=== PATIENT | female | born 1950 | race Caucasian/White ===

== ENCOUNTER 2022-04-01 10:00 | Inpatient (IN) | payer MEDICARE ==
[~2022-04-01] VITALS: Ht 157.5 cm; Wt 49.6 kg
--- NOTE | 2022-04-01 10:10 | NUR ---
PT IS IN ROOM #1B. DR NAGEL EVALUATED THE PT.
[2022-04-01] MEDS ORDERED: DIAZ5TAB PO (10:22)
[2022-04-01] MEDS ORDERED: HYDR-3980 PO (10:22)
[2022-04-01] MEDS ORDERED: TRAM50TA2 PO (10:22)
--- NOTE | 2022-04-01 10:25 | NUR ---
GPS: RECEIVED A CALL FROM RN SALLY ON PT GOING TO BE ADMITTED TO MHU. REVIEWED PT DISCHARGE PAPER WITH POTASSIUM LEVEL OF 3.2 . PER ED RN, PT IS MEDICALLY CLEARED BY ER MD AND NURSING FASHION BUYING INTERNSHIP ON THE FLOOR AWARE OF THE PT HYPOKALEMIA.
--- NOTE | 2022-04-01 10:31 | NUR ---
PT WAS MEDICALY CLEARED BY DR NAGEL.
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
--- NOTE | 2022-04-01 10:44 | NUR ---
REPORT WAS GIVEN TO RN MHU. PT WAS TRANSFERED TO MHU ROOM #145B.
[2022-04-01 11:00] VITALS: BP 157/83
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
[2022-04-01] MEDS ORDERED: BLOOD SUGAR DIAGNOSTIC 1 EACH STRIP VI ONE (11:30)
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
[2022-04-01 15:44] VITALS: BP 169/107
[2022-04-01] MEDS ORDERED: MAG HYDROX/AL HYDROX/SIMETH 30 ML LIQUID UDC PO PRN (16:00)
[2022-04-01] MEDS ORDERED: TEMAZEPAM 7.5 MG CAPSULE PO PRN (16:00)
[2022-04-01] MEDS ORDERED: MAGNESIUM HYDROXIDE 30 ML LIQUID UDC PO PRN (16:00)
--- NOTE | 2022-04-01 18:10 | NUR ---
GPS: PT HAD BEEN VERY LOUD, HYPERVERBAL AND ARGUMENTATIVE. VERY DISRUPTED WITH GROUP ACTIVITIES. PT EASILY GETS IRRITATED. PARANOID AND WITH POOR JUDGMENT AND IMPULSE CONTROL. PT WITH EPISODE OF DISORGANIZED AND DISORIENTED, ASKING LOG CHAIN FEEDER "WHY AM I HERE?" PT REORIENTED TO PRESENT SITUATION. OFFERED ATIVAN AND REFUSED. UNABLE TO TAKE VIABLE PLAN FOR SELF CARE.
[2022-04-01] MEDS: NICOTINE 14 MG/24HR PATCH TD SCH (19:54)
[2022-04-01] MEDS: LORAZEPAM 0.5 MG TABLET PO PRN (19:56)
[2022-04-01] MEDS: HYDROCODONE/APAP 10-325 MG TABLET PO PRN (20:47)
[2022-04-01] MEDS: METOPROLOL TARTRATE 25 MG TABLET PO SCH (20:47)
[2022-04-01 20:50] VITALS: BP 190/95
--- NOTE | 2022-04-01 20:53 | NUR ---
GPS: Pt.is anxious,manic,hyperverbal,has flight of ideas and uncooperative with her plan of care so far. Argumentative,paranoid and easily irritable when being re-directed. Refused med.ordered for her high B/P at this time despite explanation of importance. Refuses B/P to be re-checked again. Poor insight to present situation. Shandon 1 tab given for generalized pain as requested. Will continue to monitor behavior for further escalation. AWOL/assaultive precautions observed.
--- NOTE | 2022-04-02 05:20 | NUR ---
GPS: Pt.is awake,frequently at nurses station,manic,hyperverbal with pressured speech. Rambling,has flight of ideas,persevering. Difficult to re-direct. Arguing with staff repeatedly. Poor insight to present situation. Refused Ativan 0.5mg PO despite numerous attempts. Limit setting provided by staff. Will continue to monitor behavior for further escalation.
[2022-04-02] MEDS: ACETAMINOPHEN 325 MG TABLET PO PRN ×2 (05:33→20:48)
[2022-04-02 07:30] VITALS: BP_SYST 151; BP_SYST 51; BP_DIAS 82
[2022-04-02] MEDS: METOPROLOL TARTRATE 25 MG TABLET PO SCH ×2 (08:57→20:49)
[2022-04-02] MEDS: NICOTINE 14 MG/24HR PATCH TD SCH (08:58)
--- NOTE | 2022-04-02 08:58 | NUR ---
GPS: PT REFUSED MEDICATION METOPROLOL TODAY PT BLOOD PRESSURE IS ON THE HIGH SIDE. PT THREW IT. ALSO REFUSED NICOTINE PATCH. PT VERBALLY ABUSIVE AND THREATENING STAFF "WATCH YOUR BACK!". HYPERVERBAL, AGITATED AND ANXIOUS, PACING THE HALLWAY AND DISTURBING OTHER PT. OFFERED ATIVAN AND REFUSED.
--- NOTE | 2022-04-02 10:20 | NUR ---
GPS: PT SEEN BY PSYCHIATRIST, VERY ARGUMENTATIVE, AGITATED, VERBALLY ABUSIVE AND NON-REDIRECTABLE. PT KEEP GOING BACK TO NURSES STATION AGITATED AND VERY LOUD. PT POSES A DANGER AND HAVE POTENTIAL TO HARM OTHERS AND VERY DISRUPTIVE TO GROUP ACTIVITIES. UNABLE TO FOLLOW COMMAND. PSYCHIATRIST ORDERED ZYPREXA 5MG IM, ADMINISTERED TO PT AND TOLERATED WELL. WILL MONITOR FOR PT SAFETY.
[2022-04-02] MEDS ORDERED: OLANZAPINE 10 MG VIAL IM ONE (10:30)
--- NOTE | 2022-04-02 11:15 | NUR ---
GPS: PT STILL DISRUPTIVE. INTERRUPTING STAFF AND VERBALLY ABUSIVE. PT PACING ALONG THE HALLWAY AND ACTIVITY ROOM AND STILL BEING LOUD. TRIED TO CALM PT DOWN AND OFFERED ATIVAN PO BUT REFUSED. WILL MONITOR PT BEHAVIOR.
[2022-04-02 16:00] VITALS: BP 132/61
[2022-04-02] MEDS: DIVALPROEX SPRINKLE 125 MG CAP.SPRINK PO SCH (17:00)
--- NOTE | 2022-04-02 17:56 | NUR ---
GPS: PT HAD A NAP FOR ABOUT 2 HOURS AT 1400 AFTER RECEIVING AN IM OF ZYPREXA THIS MORNING. PT STILL HYPERVERBAL, LOUD PRESSURED SPEECH, VERBALLY ABUSIVE TO STAFF AND OTHER PT, VERY ARGUMENTATIVE AND ANXIOUS BEHAVIOR. POOR JUDGMENT AND IMPULSE CONTROL. PT HARD TO UNDERSTAND AND NON-REDIRECTABLE. FLIGHT OF IDEAS NOTED, PT STATING "DO YOU KNOW WHAT IS A MENOPAUSE. ARE YOU IN [place]?". PT REFUSED DEPAKOTE SPRINKLE PO GIVEN. EXPLAINED THE INDICATION, RISK AND BENEFITS OF TAKING THE MEDS BUT PT STILL REFUSED.
[2022-04-02 20:00] VITALS: BP 155/101
[2022-04-02] MEDS: OLANZAPINE 5 MG TABLET PO SCH (20:49)
[2022-04-02] MEDS: LORAZEPAM 0.5 MG TABLET PO PRN (20:50)
[2022-04-02] MEDS ORDERED: LORAZEPAM 2 MG/1 ML VIAL IM STA (20:51)
[2022-04-02] MEDS ORDERED: BENZTROPINE MESYLATE 2 MG/2 ML AMPUL IM STA (20:51)
[2022-04-02] MEDS ORDERED: HALOPERIDOL LACTATE 5 MG/1 ML VIAL IM STA (20:51)
[2022-04-02] MEDS ORDERED: OLANZAPINE 2.5 MG TABLET PO SCH (21:00)
--- NOTE | 2022-04-03 05:06 | NUR ---
Received to care, angry, and easily agitated, exhibiting paranoid behavior, and flight of ideas, going from one subject to another, rarely making logical sense. Stated the staff and her daughters are out to get her, that they are trying to steal her house. Medications were offered, but she continued to refuse them. After several attempts at trying to administer medications, she agreed to take, but then became violent, throwing the medications and water cup at this public relations writer, and continuing to make verbal threats. She began posturing with her fists, stating "you all will pay for this. just wait and you will see" Dr Campbell was paged, and patient was given an IM injection of Haldol 5 mg/Ativan 1 mg/Cogentin 1 mg, with security present, per MD orders. at 2225. She was cooperative the with injection, but was cursing and yelling during the administration of it. Ativan was given to the right deltoid, and the rest was given to the left hip. She calmed down after about half an hour, and went to sleep, and has slept soundly since then, with no distress noted. Will continue to monitor closely.
[2022-04-03 07:30] VITALS: BP 121/73
[2022-04-03] MEDS: OLANZAPINE 5 MG TABLET PO SCH ×2 (09:00→21:00)
[2022-04-03] MEDS: METOPROLOL TARTRATE 25 MG TABLET PO SCH ×2 (09:00→21:00)
[2022-04-03] MEDS: DIVALPROEX SPRINKLE 125 MG CAP.SPRINK PO SCH ×2 (09:00→17:00)
[2022-04-03] MEDS: NICOTINE 14 MG/24HR PATCH TD SCH ×2 (09:00→21:37)
--- NOTE | 2022-04-03 11:48 | NUR ---
GPS:PT CONTINUES TO BE AGITATED AND EASILY GETS IRRITATED SPECIALLY WHEN ASKING A QUESTION. HYPERVERBAL AND VERBALLY ABUSIVE TO STAFF. PT VERY ARGUMENTATIVE, DISRUPTING STAFF GIVING SERVICE TO OTHER PATIENT. REFUSED MEDICATION THIS MORNING EVEN AFTER EXPLAINING THE NAME, INDICATIONS, RISK AND BENEFITS. PSYCHIATRIST SEEN PT TODAY WITH FLIGHT OF IDEAS, MADE NO SENSE WITH CONVERSATION, ONLY TALKING ABOUT HER HOUSE, CATS AND PLANTS.
[2022-04-03 15:12] VITALS: BP 168/83
--- NOTE | 2022-04-03 16:18 | NUR ---
Firearms Report: Special Forces Engineer Sergeant completed and submitted a [facility] firearms report for 5150 grave disability certifications. A copy of report has been placed in patient chart. Addendum: 04/04/22 at 1351 by NATHAN WHITE Firearms Report: Special Forces Engineer Sergeant completed and submitted a [facility] firearms report for 5150 a danger to others. A copy of report has been placed in patient chart.
--- NOTE | 2022-04-03 16:24 | NUR ---
NATHAN Initial Discharge Note: Pt currently resides at home [address] [place] [phone] with her daughter per pt. Pt's discharge plan is unknown at this time. NATHAN will contact pt's daughter, Chen ([phone]) and discuss pt's discharge plan. NATHAN will continue to work with pt, daughter and MD to ensure a safe and proper discharge plan.
[2022-04-03] MEDS: ACETAMINOPHEN 325 MG TABLET PO PRN (18:10)
[2022-04-03 20:00] VITALS: BP 140/72
[2022-04-03] MEDS: HYDROCODONE/APAP 10-325 MG TABLET PO PRN (21:00)
[2022-04-04] MEDS: ACETAMINOPHEN 325 MG TABLET PO PRN ×4 (05:58→16:59)
--- NOTE | 2022-04-04 06:14 | NUR ---
Received to care, agitated, and easily agitated. Refused all medications, but took PRN [place] at bedtime, for right shoulder pain. She slept 9 hours, and is now awake, talking to self, and arguing with staff over minor things, accusing them of stealing her house. PRN Tylenol given for right shoulder pain. Currently lying in bed. No distress noted.
[2022-04-04 07:30] VITALS: BP 150/75
[2022-04-04] MEDS: DIVALPROEX SPRINKLE 125 MG CAP.SPRINK PO SCH ×3 (08:52→17:00)
[2022-04-04] MEDS: OLANZAPINE 5 MG TABLET PO SCH (08:52)
[2022-04-04] MEDS: METOPROLOL TARTRATE 25 MG TABLET PO SCH ×2 (08:54→21:00)
--- NOTE | 2022-04-04 08:59 | NUR ---
patient remains confused and scattered , poor insight . Patient refused DEPAKOTE PO, tylenol 650mg for temp 100.1
[2022-04-04] MEDS: ENSURE ENLIVE (VAN) 240 ML LIQUID PO SCH (09:30)
[2022-04-04] MEDS: HYDROCODONE/APAP 10-325 MG TABLET PO PRN (11:51)
[2022-04-04] MEDS: risperiDONE 1 MG TABLET PO SCH ×3 (13:00→17:00)
--- NOTE | 2022-04-04 14:11 | NUR ---
[address] hearing today granted as Danger to others and Gravely disabled .
--- NOTE | 2022-04-04 15:23 | NUR ---
patient temp post tylenol was 99.1 , patient received NORCO I WITH GOOD EFFECT
[2022-04-04 16:30] VITALS: BP 137/65
[2022-04-04] MEDS: NICOTINE 14 MG/24HR PATCH TD SCH (17:21)
[2022-04-04] MEDS: IBUPROFEN 400 MG TABLET PO PRN (17:35)
[2022-04-04 18:02] LABS: HEMATOCRIT 37.9 % (31.2-41.9); MEAN CORPUSCULAR HEMOGLOBIN 31.5 uug (24.7-32.8); PLATELET COUNT (AUTO) 200 K/uL (179-408)
[2022-04-04 18:15] LABS: BILIRUBIN,TOTAL 0.3 mg/dL (0.2-1.0); CREATININE 0.7 mg/dL (0.6-1.3); MAGNESIUM 1.9 mg/dL (1.8-2.4); PHOSPHOROUS 3.6 mg/dL (2.5-4.9); POTASSIUM 3.8 mmol/L (3.5-5.1); TOTAL PROTEIN, SERUM 6.1 g/dL (6.4-8.2)
[2022-04-04 18:23] LABS: THYROID STIMULATING HORMONE 1.61 mIU/mL (0.358-3.740)
--- NOTE | 2022-04-04 18:55 | NUR ---
patient continue to spike t 102.7 at 1600 called to telephoto installer for orders motrin 400mg given as ordered and multiple labs drawn, patient still refusing other mwdications PSYCHAIRST AWARE..PATIENT REECEVIED [place] at11 51 with good effect. patient lethargic and rambling normal behavior, Continue to monitor fever and discomfort.
[2022-04-04 20:08] VITALS: BP 101/50
[2022-04-05] MEDS: ACETAMINOPHEN 325 MG TABLET PO PRN ×3 (02:14→20:33)
[2022-04-05 03:30] LABS: *BILIRUBIN,URIN NEGATIVE (NEGATIVE); *BLOOD, URINE 1+ (NEGATIVE); *CLARITY,URINE CLEAR (CLEAR); *COLOR,URINE YELLOW (YELLOW); *KETONES,URINE NEGATIVE (NEGATIVE); *UROBILINOGEN,URINE 0.2 E.U./dl (NORMAL); LEUKOCYTE ESTERASE ,URINE NEGATIVE (NEGATIVE); NITRITE, URINE NEGATIVE (NEGATIVE); PH,URINE 5.5 (5.0-8.0); UGLUCOSE NEGATIVE (NEGATIVE)
[2022-04-05 03:37] LABS: BACTERIA,URINE NONE SEEN /HPF (NONE SEEN); SQUAMOUS EPITHELIAL CELL,UR FEW /HPF (NONE SEEN); WBC,URINE 0-3 /HPF (0-3)
--- NOTE | 2022-04-05 07:50 | NUR ---
Gps/Bin Packer- Has small amount of emesis this am, claimed was nauseated, mylanta offered refused. Refused to eat breakfast at this time. B/P rechecked 160/85 -HR 78 . Moist coughing noted. Hypervebal , speech pressured, denies any wrong doings ,claimed she didnt hurt her daughter.
[2022-04-05] MEDS: METOPROLOL TARTRATE 25 MG TABLET PO SCH ×2 (08:32→20:33)
[2022-04-05] MEDS: ENSURE ENLIVE (VAN) 240 ML LIQUID PO SCH (09:00)
[2022-04-05 09:30] VITALS: BP 164/85
[2022-04-05] MEDS: risperiDONE 1 MG TABLET PO SCH ×3 (10:20→17:00)
[2022-04-05] MEDS: DIVALPROEX SPRINKLE 125 MG CAP.SPRINK PO SCH ×2 (10:20→17:00)
[2022-04-05] MEDS: ONDANSETRON ODT 4 MG TAB.RAPDIS SL PRN (14:19)
--- NOTE | 2022-04-05 15:34 | NUR ---
Gps/Bank Boss- Dmitri Tomlin DNP was in to see patient, informed of the on and off nausea this am. order received. Zofran 4 mg odt given SL, verbalized relief, was able to eat sandwich w/o any emesis noted. Fluid intake adequate. Dmitri WOLF was also informed of the repeated Covid swab test came out negative.
[2022-04-05 16:07] VITALS: BP 145/63
[2022-04-05] MEDS: NICOTINE 14 MG/24HR PATCH TD SCH (18:00)
--- NOTE | 2022-04-05 18:17 | NUR ---
Gps/Casino Controller- Patient complained , had another bouts of small emesis , patient ate no dinner at this time, ice chips offered .
[2022-04-05 20:08] VITALS: BP 102/48
[2022-04-06] MEDS: ACETAMINOPHEN 325 MG TABLET PO PRN (00:47)
--- NOTE | 2022-04-06 00:48 | NUR ---
Patient complain of back pain, request Tylenol, given Tylenol as ordered.
--- NOTE | 2022-04-06 06:52 | NUR ---
Patient awake alert, offered shower but refused, episode of verbalizing concern about her house been foreclose, patient state that this info was from her MD, allowed patient to verbalize concern, will endorse in AM shift to notify S.W about patient concern. Patient calm, no further episode of vomiting noted at this time.
[2022-04-06 07:42] VITALS: BP 155/78
[2022-04-06] MEDS: ENSURE ENLIVE (VAN) 240 ML LIQUID PO SCH (09:00)
[2022-04-06] MEDS: IBUPROFEN 400 MG TABLET PO PRN (09:07)
[2022-04-06] MEDS: METOPROLOL TARTRATE 25 MG TABLET PO SCH ×2 (09:08→20:32)
[2022-04-06] MEDS: risperiDONE 1 MG TABLET PO SCH ×3 (09:08→17:32)
[2022-04-06] MEDS: DIVALPROEX SPRINKLE 125 MG CAP.SPRINK PO SCH ×3 (09:09→17:32)
[2022-04-06] MEDS: ONDANSETRON ODT 4 MG TAB.RAPDIS SL PRN ×2 (12:39→17:31)
--- NOTE | 2022-04-06 12:52 | NUR ---
Gps/Html Web Developer- Offered zofran for nausea , patient refused, claimed her Doctor told her not to take any more medicine.Patient ate lunch in the dinning room , but claimed she just had emesis ,not observed. Ice chips offered, as well as lemon soda. Monitored further nausea
[2022-04-06 16:02] VITALS: BP 112/62
[2022-04-06] MEDS: NICOTINE 14 MG/24HR PATCH TD SCH (17:31)
[2022-04-06 19:45] VITALS: BP 143/68
[2022-04-07] MEDS: IBUPROFEN 400 MG TABLET PO PRN ×2 (05:13→14:17)
--- NOTE | 2022-04-07 06:35 | NUR ---
GPS: Pt.slept 7 hrs.last night. No N/V noted. Denies any abd.discomfort. Afebrile. Remains hyper-verbal,pressured speech with flights of ideas. Re-directed prn.
[2022-04-07 08:02] VITALS: BP 141/77
[2022-04-07] MEDS: DIVALPROEX SPRINKLE 125 MG CAP.SPRINK PO SCH ×3 (09:00→17:00)
[2022-04-07] MEDS: risperiDONE 1 MG TABLET PO SCH ×2 (09:00→16:00)
[2022-04-07] MEDS: METOPROLOL TARTRATE 25 MG TABLET PO SCH ×2 (09:00→21:00)
[2022-04-07] MEDS: ENSURE ENLIVE (VAN) 240 ML LIQUID PO SCH (09:02)
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
[2022-04-07] MEDS ORDERED: OLANZAPINE 10 MG VIAL IM PRN (10:15)
[2022-04-07] MEDS ORDERED: risperiDONE 1 MG TABLET PO SCH (10:15)
[2022-04-07] MEDS ORDERED: risperiDONE 2 MG TABLET PO SCH (10:26)
[2022-04-07] MEDS: ACETAMINOPHEN 325 MG TABLET PO PRN (11:45)
--- NOTE | 2022-04-07 14:52 | NUR ---
Received patient sleeping in her room. A/O X 2 to person, place. Pt. is anxious, hyperverbal, accusatory "They're trying to take my house. They put me here. I'm not crazy". "I'm not a Psycho to take meds, and they make me sick". Tylenol 650 mg was given at 11:45 for headache, effective. Motrin 400 mg is given at 14:20 for fever of 99.1, will be monitored for effectiveness. Patient refuses medications. Pt. is encourage to vent feelings and emotions. Fall and safety precautions implemented.
--- NOTE | 2022-04-07 15:47 | NUR ---
Court hearing was scheduled today by Dr. Campbell to reise this patient, and it was granted by [employer] Special Agent Mathew Lopez.
[2022-04-07 16:02] VITALS: BP 143/70
[2022-04-07] MEDS: OLANZAPINE 10 MG VIAL IM PRN (16:21)
--- NOTE | 2022-04-07 16:30 | NUR ---
Patient refused Risperdal 1 mg at 16:00, Zyprexa 5 mg/ml IM was given at 16:21 as back up. Patient is reised and court document is placed in the patient's chart.
[2022-04-07] MEDS: NICOTINE 14 MG/24HR PATCH TD SCH (17:19)
--- NOTE | 2022-04-07 18:52 | NUR ---
Patient is in manic state, keeps arguing, yelling, offending staff and other patients after she got Zyprexa 5 mg IM as back up for refusing Risperdal 1 mg. Pt. states "You're criminals, you gave me shot without my permission" "You're bunch of animals" "Your job is killing people with poisoned injections" "I will report you guys. Your life will be over, jose francisco my words" ""No continuous mining machine operator authorize this crime. You're such a liar f* yolych".
[2022-04-07 19:45] VITALS: BP 138/74
[2022-04-07] MEDS: risperiDONE 2 MG TABLET PO SCH (21:00)
[2022-04-08] MEDS: HYDROCODONE/APAP 10-325 MG TABLET PO PRN (07:15)
[2022-04-08 07:46] VITALS: BP 142/72
[2022-04-08] MEDS: ENSURE ENLIVE (VAN) 240 ML LIQUID PO SCH (09:00)
[2022-04-08] MEDS: METOPROLOL TARTRATE 25 MG TABLET PO SCH ×2 (09:00→20:19)
[2022-04-08] MEDS: DIVALPROEX SPRINKLE 125 MG CAP.SPRINK PO SCH ×3 (09:00→17:00)
[2022-04-08] MEDS: risperiDONE 1 MG TABLET PO SCH (09:14)
[2022-04-08] MEDS: OLANZAPINE 10 MG VIAL IM PRN ×2 (09:23→20:28)
--- NOTE | 2022-04-08 09:38 | NUR ---
GPS: PT RECEIVED TODAY AT THE ACTIVITY ROOM, ARGUING OVER THE PHONE. PT VERY ARGUMENTATIVE WITH FLIGHT OF IDEAS NOTED. PT EASILY GETS AGITATED. RISPERDAL AND AM MEDS REFUSED, PT ON RIESE AND ADMINISTERED WITH ZYPREXA 5MG IM AND TOLERATED WELL. PT HYPERVERBAL AND ACCUSATORY AND THREATENING STAFF STATING "WAIT FOR A LAWSUIT". PT WITH EKG DONE TODAY WITH QTc 436. PSYCHIATRIST AND PLAYGROUND DIRECTOR MADE AWARE.
[2022-04-08] MEDS: IBUPROFEN 400 MG TABLET PO PRN (14:21)
[2022-04-08 16:12] VITALS: BP 140/72
--- NOTE | 2022-04-08 17:51 | NUR ---
GPS: PT COMPLAINING ALWAYS OF FOOD BEING SERVED. EASILY GETS AGITATED, ARGUMENTATIVE AND HAS BEEN REFUSING MEDS. POOR INSIGHT AND JUDGEMENT. PT NON-COMPLIANT WITH CARE AND MEDS.
[2022-04-08] MEDS: NICOTINE 14 MG/24HR PATCH TD SCH (18:11)
[2022-04-08 19:51] VITALS: BP 114/63
[2022-04-08] MEDS: risperiDONE 2 MG TABLET PO SCH (20:19)
--- NOTE | 2022-04-09 06:30 | NUR ---
GPS: Pt.slept 8.30 last night and currently still asleep at this time. Continues to refuse PO meds.last night despite explanation of risks.vs benefits x3. Received Zyprexa 5mg IM (Riesed) last night. Pt.was loud,angry,hostile,paranoid when being re-directed and being persuaded to take her meds. Poor insight to present situation. Safe environment provided. Will continue to monitor.
[2022-04-09] MEDS: IBUPROFEN 400 MG TABLET PO PRN (06:41)
[2022-04-09 07:30] VITALS: BP 151/82
[2022-04-09] MEDS: METOPROLOL TARTRATE 25 MG TABLET PO SCH ×2 (09:00→21:00)
[2022-04-09] MEDS ORDERED: PALIPERIDONE PALMITATE 156 MG/ML SYRINGE IM ONE (09:00)
[2022-04-09] MEDS: DIVALPROEX SPRINKLE 125 MG CAP.SPRINK PO SCH ×3 (09:00→17:00)
[2022-04-09] MEDS: ENSURE ENLIVE (VAN) 240 ML LIQUID PO SCH (09:01)
--- NOTE | 2022-04-09 09:03 | NUR ---
GPS: PT RECEIVED HYPERVERBAL, AND WITH POOR JUDGMENT AND INSIGHT AND NON-REDIRECTABLE. PACING ON THE HALLWAY, DISRUPTING STAFF AND OTHER PT. ADMINISTERED INVEGA SUSTENA 156MG IM TO LEFT DELTOID, TOLERATED WELL. PT REFUSED ALL PO MEDS TODAY.
[2022-04-09] MEDS: risperiDONE 1 MG TABLET PO SCH ×2 (10:07→21:00)
[2022-04-09] MEDS: OLANZAPINE 10 MG VIAL IM PRN (10:14)
[2022-04-09] MEDS ORDERED: risperiDONE 2 MG TABLET PO SCH (10:15)
--- NOTE | 2022-04-09 10:15 | NUR ---
GPS: OFFERED PT AM MEDS AND REFUSED. ADMINISTERED ZYPREXA 5MG IM PER RIESED ORDER. PT HAS NON-STOP HYPERVERBAL, LOUD AND VERY DISRUPTIVE TO STAFF AND PT. PSYCHIATRIST WAS AT THE UNIT.
[2022-04-09] MEDS ORDERED: LORAZEPAM 2 MG/1 ML VIAL IM ONE (10:30)
--- NOTE | 2022-04-09 10:47 | NUR ---
NATHAN Family Contact: NATHAN spoke with pt's daughter, Chen ([phone]) regarding pt's treatment and discharge plan. Chen stated that the court had said pt is mentally incompetent. Chen stated pt has a surplus and another form of income that the family does not have access to without the pt's signature in order to help the pt. Chen stated she is agreeable to a halfway facility for the pt as pt does not have a current home to return to. Chen stated pt's home is in [facility] and she cannot return. Chen also stated pt cannot live with her anymore. NATHAN stated this policy writer sales will refer pt to [facility] prior to additional facilities and update Chen with further updates. Chen is aware and agreeable. Chen stated pt does not have a DPOA or conservator.
--- NOTE | 2022-04-09 11:06 | NUR ---
GPS: PT WAS CONFUSED, HYPERVERBAL, LOUD TALKING ON THE HALLWAY IN FRONT OF THE NURSE STATION WITH HER PSYCHIATRIST IN THE UNIT. PT VERY AGITATED, AGGRESSIVE AND POSING A DANGER TO OTHERS WITH HIGH POTENTIAL FOR VIOLENCE AND THREATENING STAFF AND PSYCHIATRIST, UNABLE TO FOLLOW ORDERS AND DIVERSION DONE AND WAS UNSUCCESSFUL, PT STOOD STILL AND BEING VERY LOUD, AGITATED AND NON-REDIRECTABLE EVEN AFTER CALLING SECURITY PERSONNEL. PSYCHIATRIST ORDERED ATIVAN 1MG IM, ADMINISTERED AND TOLERATED BY PT. WILL MONITOR FOR ANY AR.
--- NOTE | 2022-04-09 11:12 | NUR ---
Clinical SW Note: Pt presented hyperverbal, verbally aggressive, threatening staff and psychiatrist. Pt was unable to be redirected by multiple staff and this SW. Security was called as pt refused to listen to staff and pt continued to require redirection. Pt appeared disruptive to other patients and a danger to others. Psychiatrist ordered Ativan 1mg to be administered. Security was called with Charge Nurse Pernell and Nurse Farnsworth for assistance.
--- NOTE | 2022-04-09 11:35 | NUR ---
SNF Referral: SW faxed patient's referral packet including: History and Physical, Consultation, Progress Notes, Medication List and Labs to the following facilities for review and possible [place] [facility] [address] [place] [id number] ([phone]) F:([phone]) and spoke with Bessy Carrillo.
--- NOTE | 2022-04-09 12:05 | NUR ---
GPS: PT IS ASLEEP ON BED. DAUGHTER CALLED AND INFORMED ABOUT PT BEHAVIOR THIS MORNING AND ADMINISTRATION OF ATIVAN 1MG IM. DAUGHTER ACCUSING RISK MANAGEMENT ANALYST AND STAFF THAT WE ARE DRUGGING UP PT AND PT TELLING DAUGHTER, WE ARE FEEDING HER BABY FOOD. EXPLAINED TO DAUGHTER HOW PT BEHAVED THIS MORNING BEING ACCUSATORY, HYPERVERBAL, VERBALLY ABUSIVE AND THREATENING TO STAFF AND DISRUPTIVE TO OTHER PT.
--- NOTE | 2022-04-09 15:30 | NUR ---
NATHAN Family Contact Update: Pt's second daughter, Isela [phone] contacted NATHAN and stated she is the pt's DPOA and refuses for the pt to be discharged to a SNF and that she will return home under her daughter's care. NATHAN asked Isela to please provide DPOA paperwork and that this NATHAN will inform the psychiatrist of the updated discharge plan to return home with Isela. Isela is aware and agreeable. NATHAN will continue to work with the pt, family and MD to ensure a safe and proper discharge plan. Isela stated her mother does not belong in a fpc and will only return home.
[2022-04-09 16:00] VITALS: BP 145/82
[2022-04-09] MEDS: NICOTINE 14 MG/24HR PATCH TD SCH (18:25)
--- NOTE | 2022-04-09 18:43 | NUR ---
GPS: PT ON BED, ASLEEP MOST OF THE AFTERNOON. PT WOKE UP AROUND 1800 AND PT LOOKS CONFUSED FOR A WHILE WITH UNSTEADY GAIT. SAFETY PRECAUTION MADE. PT CONSUMED 75% OF DINNER. NO EPISODE OF SCREAMING OR HYPERVERBAL AT THIS TIME. NICOTINE PATCH RECEIVED BUT REFUSED 1700 DEPAKOTE MEDICATION. DENIES PAIN OR DISCOMFORT. PT DAUGHTER CALLED THIS AFTERNOON INFORMED ABOUT VISITATION TIME SCHEDULES.
[2022-04-09 20:07] VITALS: BP 150/78
--- NOTE | 2022-04-10 01:24 | NUR ---
Received patient at the start of the shift in bed sleeping. VS taken, food offered but patient fell back asleep. Will offer patient PO, medications when awake and alert. Safety Stratiges are in place at this time. Monitoring for compliance and behavior escalation. Patient received multiple injections during the dayshift.
--- NOTE | 2022-04-10 05:05 | NUR ---
The patient was up to the bathroom once during the night. Sleep hours have been 8.45 so far. Continuing to monitor behavior. No medications given on this shift d/t the patient sleeping through the shift. Safety Stratiges remain in place.
--- NOTE | 2022-04-10 06:19 | NUR ---
The patient is up and demanding, delusional and angry. Patient appears paranoid and verbally accusatory towards the staff. She has not showered for 6 days , and continues to refuse to shower. No outward physical aggression noted this am but continuing to monitor for compliance and behavior escalation. This patient rambles on and on and unable to be a active listener to even simple answers. Safety Stratiges are in place.
[2022-04-10] MEDS: IBUPROFEN 400 MG TABLET PO PRN (06:30)
--- NOTE | 2022-04-10 07:07 | NUR ---
This lead technical writer was able to have a 20 minute , reasonable conversation with this patient. The patient agreed to take all the medications PO today. Will endorse to the on coming shift.
[2022-04-10 08:25] VITALS: BP 153/87
[2022-04-10] MEDS: DIVALPROEX SPRINKLE 125 MG CAP.SPRINK PO SCH ×3 (09:00→17:00)
[2022-04-10] MEDS: risperiDONE 1 MG TABLET PO SCH ×2 (09:00→20:33)
[2022-04-10] MEDS: METOPROLOL TARTRATE 25 MG TABLET PO SCH ×2 (09:00→20:33)
[2022-04-10] MEDS: OLANZAPINE 10 MG VIAL IM PRN (09:30)
[2022-04-10] MEDS: ENSURE ENLIVE (VAN) 240 ML LIQUID PO SCH (09:39)
--- NOTE | 2022-04-10 09:43 | NUR ---
GPS: PT WAS QUIET RECEIVED ON BED EARLY START OF SHIFT, BUT STARTED TO BECOME PARANOID, LOUD AND VERY ANXIOUS AND ACCUSATORY TO SOAKER MEAT AND STAFF. PT OFFERED AM PO MEDS SEVERAL TIMES AND REFUSED. CALLED SECURITY PERSONNEL, ADMINISTERED ZYPREXA 5MG IM AND TOLERATED WELL BY PT. PT STILL CONTINUOUSLY HYPERVERBAL AND VERBALLY ABUSIVE AND THREATENING TO STAFF.
[2022-04-10 16:00] VITALS: BP 149/80
[2022-04-10] MEDS: NICOTINE 14 MG/24HR PATCH TD SCH (17:29)
--- NOTE | 2022-04-10 19:09 | NUR ---
GPS: PT WITH EPISODE OF HYPERVERBAL AND THREATENING STAFF AND BEING PARANOID STATING "YOU SHOULD BE ON CITIZEN ARREST" AND "WATCH YOU BACK" BY THE END OF THE SHIFT. PT REFUSED 1700 MEDICATION. NON-REDIRECTABLE, NON-STOP TALKING.
[2022-04-10] MEDS: LORAZEPAM 0.5 MG TABLET PO PRN (20:34)
--- NOTE | 2022-04-11 01:46 | NUR ---
Received patient at the start of the shift, yelling, non-stop rambling , accusatory towards staff and paranoid . This selling underwriter tried multiple times to calmly deescalate the situation. Eventually, the patient did calm down, and did take her Risperdal PO in order not to get the injection. However, the patient continued to refuse VS and most other medications ordered . Safety Stratiges are in place . Monitoring the patient for further behavior escalation and compliance.
[2022-04-11 07:58] VITALS: BP 143/93
[2022-04-11] MEDS: risperiDONE 1 MG TABLET PO SCH ×2 (08:52→21:23)
[2022-04-11] MEDS: DIVALPROEX SPRINKLE 125 MG CAP.SPRINK PO SCH ×3 (08:52→17:07)
[2022-04-11] MEDS: ENSURE ENLIVE (VAN) 240 ML LIQUID PO SCH (09:01)
[2022-04-11] MEDS: METOPROLOL TARTRATE 25 MG TABLET PO SCH ×2 (09:01→21:24)
--- NOTE | 2022-04-11 09:54 | NUR ---
GPS: RECEIVED PT YELLING AND NON-REDIRECTABLE, CALLED SECURITY TO MOVE THE PT FROM NURSES STATION DISRUPTING PSYCHIATRIST AND THREATENING STAFF SAYING "I CAN GOOGLE YOUR HOUSE, I CAN CHECK WHAT CAR YOU HAVE AND HOW MANY KIDS YOU HAVE". PT NON-STOP SCREAMING, VERBALLY ABUSIVE IN AND OUT OF HER ROOM. PT TOOK THE AM MEDS TODAY. DENIES PAIN OR DISCOMFORT. SAFETY PRECAUTIONS APPLIED FOR PT.
--- NOTE | 2022-04-11 14:02 | NUR ---
NATHAN Family Contact: SW called pt's daughter, Isela ([phone]) and was not able to get connected. SW was not able to leave a voicemail as the machine stated, "The number you entered is not a subscriber." NATHAN also called pt's second daughter, Chne ([phone]) and was also not able to leave a voicemail due to machine stating the number does not accept voicemails.
[2022-04-11 16:29] VITALS: BP 138/88
[2022-04-11] MEDS: NICOTINE 14 MG/24HR PATCH TD SCH (17:14)
--- NOTE | 2022-04-11 17:17 | NUR ---
GPS: PT TOLERATED WELL THE 1700 MEDICATION DEPAKOTE 500MG PO. PT COMPLAINING WHY SHE IS HAVING 2 CAPSULES, EXPLAINED AND UNDERSTOOD WITH SUSPICIOUS THOUGHTS. PT WITH EPISODES OF BEING ARGUMENTATIVE, HYPERVERBAL AND VERBALLY ABUSIVE TO STAFF. EASILY GETS IRRITATED, NON REDIRECTABLE MOST OF THE TIME.
[2022-04-11 20:54] VITALS: BP 125/52
[2022-04-11] MEDS: LORAZEPAM 0.5 MG TABLET PO PRN (21:23)
--- NOTE | 2022-04-12 04:46 | NUR ---
Patient took her medications PO last night in order to avoid an injection. She did yell and argue with the nurse as usual but only for a short period of time. The patient slept well, a total of 8.45 hours. When staff walks into the room, this patient will continue to call us names and is verbally aggressive, delusional and unable or unwilling to engage in any reasonable conversation . Every word spoken during the shift was in a loud tone. This travel writer literally could not get a word in edgewise. Safety Stratiges are in place . Continuing to monitor patient for further behavior escalation and for compliance.
[2022-04-12] MEDS: IBUPROFEN 400 MG TABLET PO PRN ×2 (05:48→13:56)
[2022-04-12 07:55] VITALS: BP 128/65
[2022-04-12] MEDS: DIVALPROEX SPRINKLE 125 MG CAP.SPRINK PO SCH ×3 (08:50→16:35)
[2022-04-12] MEDS: risperiDONE 1 MG TABLET PO SCH ×2 (08:51→23:12)
[2022-04-12] MEDS: LORAZEPAM 0.5 MG TABLET PO PRN (08:51)
[2022-04-12] MEDS: METOPROLOL TARTRATE 25 MG TABLET PO SCH ×2 (08:51→23:13)
[2022-04-12] MEDS: ENSURE ENLIVE (VAN) 240 ML LIQUID PO SCH (08:52)
[2022-04-12 16:07] VITALS: BP 132/70
[2022-04-12] MEDS: NICOTINE 14 MG/24HR PATCH TD SCH (17:05)
--- NOTE | 2022-04-12 18:09 | NUR ---
GPS: Nursing Notes: Destructive Behavior To Others: Patient is awake and responding to her name, impaired judgment, poor impulse control, compliant with her psych. medications because she does not injections, patient has been Riese, loud and pressured speech, episodes of talking over staff, verbal abusive, using profanities, threatening staff with a law ashia, unable to formulate a viable plan for self care, continue with treatment plan.
[2022-04-12] MEDS: TEMAZEPAM 7.5 MG CAPSULE PO PRN (23:12)
[2022-04-13] MEDS: IBUPROFEN 400 MG TABLET PO PRN (05:45)
[2022-04-13 07:30] VITALS: BP 160/90
[2022-04-13] MEDS: DIVALPROEX SPRINKLE 125 MG CAP.SPRINK PO SCH ×3 (08:40→16:44)
[2022-04-13] MEDS: METOPROLOL TARTRATE 25 MG TABLET PO SCH ×2 (08:41→20:47)
[2022-04-13] MEDS: risperiDONE 1 MG TABLET PO SCH ×2 (08:41→20:48)
[2022-04-13] MEDS: ENSURE ENLIVE (VAN) 240 ML LIQUID PO SCH (08:42)
[2022-04-13] MEDS: LORAZEPAM 0.5 MG TABLET PO PRN (08:42)
[2022-04-13] MEDS: ACETAMINOPHEN 325 MG TABLET PO PRN (12:08)
--- NOTE | 2022-04-13 14:56 | NUR ---
GPS: Nursing Notes: Destructive Behavior To Others: Patient is awake and responding to her name, poor anger management, poor impulse control, impaired judgment, setting limits,but talks overly you, unable to formulate a viable plan for self care, overly disruptive by shouting at times, paranoid behavior, believes that her kids are taking her house away from her, believes that the staff is against her, loud and pressured speech, continue to monitor for safety, continue with treatment plan.
[2022-04-13] MEDS: NICOTINE 14 MG/24HR PATCH TD SCH (17:03)
[2022-04-13] MEDS: TEMAZEPAM 7.5 MG CAPSULE PO PRN (20:48)
[2022-04-14] MEDS: IBUPROFEN 400 MG TABLET PO PRN (07:54)
[2022-04-14] MEDS: LORAZEPAM 0.5 MG TABLET PO PRN ×2 (07:54→21:49)
[2022-04-14 08:03] VITALS: BP 162/90
[2022-04-14] MEDS: DIVALPROEX SPRINKLE 125 MG CAP.SPRINK PO SCH ×3 (08:42→17:06)
[2022-04-14] MEDS: METOPROLOL TARTRATE 25 MG TABLET PO SCH ×2 (08:42→21:00)
[2022-04-14] MEDS: ENSURE ENLIVE (VAN) 240 ML LIQUID PO SCH (08:42)
[2022-04-14] MEDS: risperiDONE 1 MG TABLET PO SCH ×2 (08:42→21:49)
--- NOTE | 2022-04-14 09:45 | NUR ---
NATHAN Family Contact: NATHAN called pt's daughter, Isela ([phone]) three times today and was not able to get connected again. SW was not able to leave a voicemail as the machine constinued to state, "The number you entered is not a subscriber." NATHAN also called pt's second daughter, Chen ([phone]) and this SW was again also not able to leave a voicemail due to machine stating the number does not accept voicemails.
--- NOTE | 2022-04-14 13:27 | NUR ---
NATHAN Family Contact Update: NATHAN spoke with pt's daughter, Chen ([phone]) regarding pt's treatment and discharge plan. Chen confirmed that pt does not currently have a DPOA or conservatorship to this SW. Chen stated she is in process of filing for conservatorship for the pt. Chen is agreeable that pt requires a long term facility upon discharge as pt does not have a current safe discharge plan. NATHAN expressed to Chen that her sister, Isela ([phone]) had informed NATHAN that Isela is the DPOA. Chen confirmed that that is incorrect information and that the pt does not have DPOA.
--- NOTE | 2022-04-14 13:41 | NUR ---
GPS: Nursing Notes: Destructive Behavior To Others: Patient is awake and responding to her name, poor impulse control, impaired judgment, resistant with nursing care, argumentative, labile, loud and pressured speech, evasive when questioned by staff, unable to formulate a viable plan for self care, continue to monitor for safety, continue with treatment plan.
[2022-04-14 16:01] VITALS: BP 164/76
[2022-04-14] MEDS: NICOTINE 14 MG/24HR PATCH TD SCH (17:06)
--- NOTE | 2022-04-15 03:17 | NUR ---
Received patient in her room at the start of the shift. Refused to allow VS to be taken. This investigative writer was unable to admin the Metoprol PM dose. The patient is argumentative, paranoid and verbally abusive to staff. She reluctantly took her other medications but made it clear " I do not need to be on any medications. I won't be taking any pills when I go home, I can tell you that ". The patient is less confrontational the previous shifts, but still unable to engage in any meaningful conversation or control her nonsensical rambling. Safety Stratiges are in place. Continuing to monitor for compliance and behavior escalation.
[2022-04-15] MEDS: IBUPROFEN 400 MG TABLET PO PRN ×2 (06:14→14:21)
[2022-04-15 07:30] VITALS: BP 151/78
[2022-04-15] MEDS: DIVALPROEX SPRINKLE 125 MG CAP.SPRINK PO SCH ×3 (08:33→17:03)
[2022-04-15] MEDS: risperiDONE 1 MG TABLET PO SCH ×2 (08:33→21:14)
[2022-04-15] MEDS: METOPROLOL TARTRATE 25 MG TABLET PO SCH ×2 (08:34→21:00)
[2022-04-15] MEDS: ENSURE ENLIVE (VAN) 240 ML LIQUID PO SCH (08:34)
--- NOTE | 2022-04-15 12:02 | NUR ---
GPS: Nursing Notes: Destructive Behavior To Others: Patient is awake and responding to her name, argumentative, loud and pressured speech, threatening staff with a law ashia, redirected and reoriented during shift, but resistant with nursing care, talking over the staff, resistant with nursing care, unable to formulate a viable plan for self care, continue to monitor for safety, continue with treatment plan.
[2022-04-15] MEDS: ACETAMINOPHEN 325 MG TABLET PO PRN (12:30)
[2022-04-15] MEDS ORDERED: PALIPERIDONE PALMITATE 156 MG/ML SYRINGE IM ONE (15:00)
[2022-04-15 15:26] VITALS: BP 106/49
--- NOTE | 2022-04-15 15:31 | NUR ---
NATHAN Family Contact Update: NATHAN contacted pt's daughter, Chen ([phone]) via telephone with the pt present during the phone call regarding pt's treatment and discharge plan. Chen confirmed that pt does not currently have a DPOA or conservatorship to this SW. NATHAN stated to Chen and Rita that pt will be discharged to [facility] on 04/16[facility]. NATHAN stated that [facility] is not able to accept the pt at this time. Chen is aware and agreeable. Pt is aware she will not be on a hold and that it is a short term placement prior to additional placement provided by daughter, Chen. NATHAN stated that this sign writer letterer or painter has not been able to connect with her sister, Isela ([phone]) and has left multiple voicemails regarding pt's discharge updates. Chen is aware.
--- NOTE | 2022-04-15 15:33 | NUR ---
NATHAN Family Contact: SW called pt's daughter, Isela ([phone]) and was not able to get connected. NATHAN was not able to leave a voicemail as the machine continues to state, "The number you entered is not a subscriber."
--- NOTE | 2022-04-15 16:09 | NUR ---
NATHAN Family Contact: SW called pt's daughter, Isela ([phone]) again and was not able to get connected. NATHAN was not able to leave a voicemail as the machine continues to state, "The number you entered is not a subscriber."
[2022-04-15] MEDS: NICOTINE 14 MG/24HR PATCH TD SCH (18:26)
--- NOTE | 2022-04-15 22:00 | NUR ---
RECEIVED PATIENT IN HER ROOM IN BED. SHE IS NOTED A/O X 2 TO 3. SHE IS ABLE TO VERBALIZED FEELINGS. SHE IS HYPERVERBAL. SHE GETS EASILY IRRITABLE. HER SPEECH IS DISORGANIZED. SHE REFUSED V/S INCLUDING B/P THEREFORE METOPROLOL QHS WAS NOT GIVEN. PATIENT WAS INFORMED OF THE IMPORTANCE TO COMPLY WITH MEDICATION REGIMENT AND PLAN OF CARE TO IMPROVED HER CONDITION, YET REFUSED. SHE IS REASSURED FOR HER SAFETY. SAFETY AND FALL PRECAUTIONS ARE IN PLACE. PATIENT'S V/S ARE STABLE, SHE IS IN NO DISTRESS. SHE WAS GIVEN PO FLUIDS AND SNACKS. WILL CONTINUE TO MONITOR.
[2022-04-16 07:03] LABS: MEAN CORPUSCULAR HEMOGLOBIN 31.5 uug (24.7-32.8); MEAN CORPUSCULAR VOLUME 88.9 fL (75.5-95.3); PLATELET COUNT (AUTO) 359 K/uL (179-408)
[2022-04-16 07:24] LABS: BILIRUBIN,TOTAL 0.6 mg/dL (0.2-1.0); CREATININE 0.6 mg/dL (0.6-1.3); POTASSIUM 4.2 mmol/L (3.5-5.1); TOTAL PROTEIN, SERUM 5.8 g/dL (6.4-8.2)
[2022-04-16 07:30] VITALS: BP 139/85
[2022-04-16] MEDS: ACETAMINOPHEN 325 MG TABLET PO PRN (07:52)
[2022-04-16] MEDS: DIVALPROEX SPRINKLE 125 MG CAP.SPRINK PO SCH (09:05)
[2022-04-16] MEDS: risperiDONE 1 MG TABLET PO SCH (09:05)
[2022-04-16 09:06] VITALS: BP 139/85
[2022-04-16] MEDS: METOPROLOL TARTRATE 25 MG TABLET PO SCH (09:06)
[2022-04-16] MEDS: ENSURE ENLIVE (VAN) 240 ML LIQUID PO SCH (09:07)
--- NOTE | 2022-04-16 09:49 | NUR ---
NATHAN Discharge Note: Pt will be discharged to [facility] located at [id number] [place] [id number] ([phone]) via Ambulance transportation at 11AM. NATHAN spoke with admin coordinator, Fer and Ainsley at the facility who states they are ready to accept the patient today. Pt is aware and agreeable with discharge plans. Pts daughterChen ([phone]) is aware and agreeable with the discharge plan. NATHAN contacted and left several voicemails for pts daughterIsela ([phone]) for a call back regarding pts discharge plan. NATHAN informed Chen that this science writer has not been able to connect with Isela due to the phone call stating, "The number you entered is not a subscriber." Chen is aware. Pt is alert and oriented x3, is unable to plan for self-care at this time; however, is willing to accept care at SNF. Pt denies any suicidal or homicidal ideation. Pt will follow-up at the facility with Psychiatrist, Dr Campbell ([phone]) and [employer], Dr. Bush. Pt presents with calm mood and congruent affect. PHARMACY: [facility] [phone]) [address] [place] [address].
--- NOTE | 2022-04-16 10:30 | NUR ---
GPS: PT RECEIVED TODAY, QUIET, PLEASANT AND NO AGITATION NOTED. COMPLIANT WITH MEDS. PT PARTICIPATED WITH GROUP THERAPY. PT WILL BE DISCHARGE TODAY TO [facility]IA [facility]BULANCE AT 11AM. REPORT DONE TO RACHEL AT [facility].
--- NOTE | 2022-04-16 10:59 | NUR ---
GPS: PT ALERT AND ORIENTED X 3. PT
--- NOTE | 2022-04-16 11:15 | NUR ---
GPS: PT WAS DISCHARGE FROM THE UNIT BROUGHT BY AMBULANCE TRANSPORTATION GOING TO [facility]. ALL BELONGINGS GIVEN AND PT REFUSED TO SIGN OTHER FORMS. PT WAS COOPERATIVE WITH AMBULANCE PERSONNEL.
== END 2022-04-16 11:30 | DRG 885 ==
LOC: ER 10:00 → GPS 10:44
PROVIDERS: ADMIT Psychiatry & Neurology Psychosomatic Medicine; ATTEND Internal Medicine
DX: F25.0 Schizoaffective disorder, bipolar type (principal); G89.29 Other chronic pain; F60.9 Personality disorder, unspecified; I10 Essential (primary) hypertension; Z79.891 Long term (current) use of opiate analgesic; R41.9 Unspecified symptoms and signs involving cognitive functions and awareness; R79.89 Other specified abnormal findings of blood chemistry; Z87.891 Personal history of nicotine dependence; Z20.822 Contact with and (suspected) exposure to COVID-19
CPT/HCPCS: 36415; 71045; 80164; 83735; 84100; 84443; 85025; 87040; 93005; A4663; J0515; J1630; J2060; J2358; J2426; Q0162